=== PATIENT | male | born 1940 | race Asian ===

== ENCOUNTER 2021-03-16 06:33 | Outpatient (CLI) | payer MEDICARE | END 2021-03-16 23:59 | disposition home or self-care (01) | LOC: LAB 06:33 | PROVIDERS: ATTEND Ophthalmology | DX: Z01.812 Encounter for preprocedural laboratory examination (principal); Z20.822 Contact with and (suspected) exposure to COVID-19 ==

== ENCOUNTER 2021-03-18 06:54 | Day surgery (SDC) | payer MEDICARE, OTHER ==
[2021-03-18] MEDS ORDERED: BALANCED SALT IRRIG SOLN COMB1 500 ML, EPINEPHRINE-PF 1:1000 0.5 MG IO ONE (07:00)
[2021-03-18] MEDS ORDERED: ACETYLCHOLINE CHLORIDE 1% OPHT 1 EA KIT ONE (07:32)
[2021-03-18] MEDS ORDERED: LIDOCAINE-MPF 2% 5 ML VIAL ONE (07:32)
[2021-03-18] MEDS ORDERED: BALANCED SALT IRRIG SOLN COMB2 15 ML IRRIG.SOLN ONE (07:32)
[2021-03-18] MEDS ORDERED: TIMOLOL MALEATE 0.5% OPHT DROP 5 ML BOTTLE ONE (07:32)
[2021-03-18] MEDS ORDERED: MOXIFLOXACIN HCL 3 ML OPHT DROPS ONE (07:32)
[2021-03-18] MEDS ORDERED: NEO/POLYMYX B/DEXAME OPHT OINT 3.5 GM TUBE ONE (07:32)
[2021-03-18] MEDS ORDERED: HYALURONATE SODIUM 12.8 MG/0.8 ML DISP.SYRIN ONE (07:33)
[2021-03-18] MEDS ORDERED: BALANCED SALT IRRIG SOLN COMB1 500 ML ONE (07:33)
[2021-03-18] MEDS ORDERED: HYALURONIDASE,OVINE 200 UNITS/ML VIAL ONE (07:33)
[2021-03-18] MEDS ORDERED: BUPIVACAINE PF 0.5% 30 ML VIAL ONE (07:33)
[2021-03-18] MEDS ORDERED: FENTANYL CITRATE 100 MCG/2 ML AMPUL ONE (07:52)
[2021-03-18] MEDS ORDERED: KETOROLAC 0.5% OPHT DROP 3 ML BOTTLE ONE (07:53)
[2021-03-18] MEDS ORDERED: TROPICAMIDE 1% OPHT DROP 3 ML BOTTLE ONE (07:53)
[2021-03-18] MEDS ORDERED: PHENYLEPHRINE 2.5% OPHT DROP 2 ML BOTTLE ONE (07:53)
[2021-03-18] MEDS ORDERED: CIPROFLOXACIN 0.3% OPHT DROP 2.5 ML BOTTLE ONE (07:53)
[2021-03-18] MEDS ORDERED: CYCLOPENTOLATE 1% OPHT DROP 2 ML BOTTLE ONE (07:53)
== END 2021-03-18 10:15 | disposition home or self-care (01) ==
LOC: DS 06:54
PROVIDERS: ATTEND Ophthalmology
DX: H25.89 Other age-related cataract (principal); I11.9 Hypertensive heart disease without heart failure; I70.0 Atherosclerosis of aorta; I25.10 Atherosclerotic heart disease of native coronary artery without angina pectoris; Z79.899 Other long term (current) drug therapy; Z98.890 Other specified postprocedural states
CPT/HCPCS: 66984; 71045; J0171; J3010; J3471; J3490 ×2; J7120; J7321; V2632; A4663